=== PATIENT | male | born 1955 | race Caucasian/White ===

== ENCOUNTER 2020-08-24 14:22 | Outpatient (CLI) | payer MEDICARE | END 2020-08-24 14:23 | disposition home or self-care (01) | LOC: BICCT 14:22 | PROVIDERS: ATTEND Family Medicine | DX: Z12.2 Encounter for screening for malignant neoplasm of respiratory organs (principal); F17.210 Nicotine dependence, cigarettes, uncomplicated | CPT/HCPCS: 71271 ==

== ENCOUNTER 2021-04-14 09:21 | Outpatient (CLI) | payer MEDICARE | END 2021-04-14 09:22 | disposition home or self-care (01) | LOC: BICULT 09:21 | PROVIDERS: ATTEND Family Medicine | DX: Z13.6 Encounter for screening for cardiovascular disorders (principal) | CPT/HCPCS: 76775 ==

== ENCOUNTER 2021-08-31 14:34 | Outpatient (CLI) | payer OTHER | END 2021-08-31 14:35 | disposition home or self-care (01) | LOC: BICCT 14:34 | PROVIDERS: ATTEND Family Medicine | DX: Z12.2 Encounter for screening for malignant neoplasm of respiratory organs (principal); F17.218 Nicotine dependence, cigarettes, with other nicotine-induced disorders; J43.9 Emphysema, unspecified | CPT/HCPCS: 36415; 71271; 80053; 80061; 84443; 85025; G0103 ==

== ENCOUNTER 2022-03-21 11:36 | Outpatient (CLI) | payer OTHER | END 2022-03-21 11:37 | disposition home or self-care (01) | LOC: CT 11:36 | PROVIDERS: ATTEND Oral & Maxillofacial Surgery | DX: M27.2 Inflammatory conditions of jaws (principal); M79.9 Soft tissue disorder, unspecified | CPT/HCPCS: 70487 ==

== ENCOUNTER 2022-09-26 10:32 | Outpatient (CLI) | payer OTHER | END 2022-09-26 10:33 | disposition home or self-care (01) | LOC: BICCT 10:32 | PROVIDERS: ATTEND Family Medicine | DX: Z12.2 Encounter for screening for malignant neoplasm of respiratory organs (principal); F17.218 Nicotine dependence, cigarettes, with other nicotine-induced disorders | CPT/HCPCS: 71271 ==

== ENCOUNTER 2024-01-16 09:06 | Outpatient (CLI) | payer OTHER ==
[2024-01-16] MEDS ORDERED: Iopamidol 370 76% 100 ML VIAL ONE (09:15)
== END 2024-01-16 09:07 | disposition home or self-care (01) ==
LOC: BICCT 09:06
PROVIDERS: ATTEND Family Medicine
DX: Z12.2 Encounter for screening for malignant neoplasm of respiratory organs (principal); F17.210 Nicotine dependence, cigarettes, uncomplicated
CPT/HCPCS: 71271; Q9967

== ENCOUNTER 2025-02-03 10:14 | Outpatient (CLI) | payer OTHER | END 2025-02-03 10:15 | disposition home or self-care (01) | LOC: BICCT 10:14 | PROVIDERS: ATTEND Family Medicine | DX: Z12.2 Encounter for screening for malignant neoplasm of respiratory organs (principal); F17.210 Nicotine dependence, cigarettes, uncomplicated | CPT/HCPCS: 71271 ==